=== PATIENT | female | born 1975 | race Caucasian/White ===

== ENCOUNTER 2022-03-14 07:05 | Emergency (ER) | payer OTHER, BC ==
[2022-03-14] MEDS ORDERED: Ibuprofen 600 MG Tab PO ONE (07:35)
[2022-03-14] MEDS ORDERED: traMADol 50 MG Tab PO ONE (07:35)
== END 2022-03-14 09:18 | disposition home or self-care (01) ==
LOC: MW.ED 07:05
DX: S92.352A Displaced fracture of fifth metatarsal bone, left foot, initial encounter for closed fracture (principal); F17.210 Nicotine dependence, cigarettes, uncomplicated; Z88.8 Allergy status to other drugs, medicaments and biological substances; X50.1XXA Overexertion from prolonged static or awkward postures, initial encounter; Y99.0 Civilian activity done for income or pay
CPT/HCPCS: 73610; 73620; 99283; A9270